=== PATIENT | female | born 1980 | race Two or more races ===

== ENCOUNTER 2018-04-18 12:35 | Outpatient (CLI) | payer OTHER | END 2018-04-18 12:45 | disposition home or self-care (01) | LOC: SONOGRAMA 12:35 | DX: K76.0 Fatty (change of) liver, not elsewhere classified (principal); R16.0 Hepatomegaly, not elsewhere classified ==

== ENCOUNTER 2018-05-17 05:20 | Day surgery (SDC) | payer OTHER ==
[~2018-05-17 05:20] MED LIST: FIORINAL 50-321 EACH PO; PROTONIX20 MG PO; ZANTAC300 MG PO
== END 2018-05-17 12:52 | disposition home or self-care (01) ==
LOC: EDBD → CIR.AMB 05:20
DX: K80.10 Calculus of gallbladder with chronic cholecystitis without obstruction (principal)

== ENCOUNTER 2021-05-13 13:54 | Outpatient (CLI) | payer OTHER | END 2021-05-13 14:33 | disposition home or self-care (01) | LOC: MAMO-SONO 13:54 | DX: N64.59 Other signs and symptoms in breast (principal); Z12.31 Encounter for screening mammogram for malignant neoplasm of breast ==

== ENCOUNTER 2024-10-10 09:20 | Outpatient (CLI) | payer OTHER | END 2024-10-10 09:24 | disposition home or self-care (01) | LOC: MAMO-SONO 09:20 | PROVIDERS: ATTEND Obstetrics & Gynecology | DX: N63.10 Unspecified lump in the right breast, unspecified quadrant (principal); N63.20 Unspecified lump in the left breast, unspecified quadrant ==

== ENCOUNTER → 2024-11-30 07:07 | Outpatient (CLI) | payer OTHER | END | disposition home or self-care (01) | LOC: NUCLEAR 07:07 | PROVIDERS: ATTEND Internal Medicine Hematology & Oncology | DX: M05.80 Other rheumatoid arthritis with rheumatoid factor of unspecified site (principal); M35.1 Other overlap syndromes; M19.90 Unspecified osteoarthritis, unspecified site; M32.8 Other forms of systemic lupus erythematosus ==